=== PATIENT | female | born 1990 | race Caucasian/White ===

== ENCOUNTER 2017-07-27 15:51 | Emergency (ER) | payer OTHER ==
[~2017-07-27] VITALS: Ht 160 cm; Wt 105.5 kg
[2017-07-27 16:07] VITALS: Ht 160 cm; Wt 105.5 kg
[2017-07-27] MEDS ORDERED: AZIT250T94 PO (19:34)
--- NOTE | 2017-07-27 19:38 | ERD ---
ER Documentation Chief Complaint Date/Time DATE: 07/27/17 TIME: 19:35 Chief Complaint Patient states cough with and pain and flu-like sypmtoms HPI 26-year-old female who is approximately 10 weeks complaining of dry cough that she has had for over a month she states. She thinks he had a fever at first the fever has subsided. No nausea or vomiting. She denies any OB complaints. No vaginal bleeding. No dysuria hematuria or increased urinary frequency. No nausea vomiting. No no pelvic pain. No abdominal pain. ROS All systems reviewed and are negative except as per history of present illness. Medications Home Meds Active Scripts Azithromycin* (Zithromax*) 250 Mg Tablet, 250 MG PO .ZPACK DIRECTED, #6 TAB TAKE 500 MG (2 TABS) THE FIRST DAY THEN 250 MG (1 TAB) DAYS 2-5 Prov:THOM DURAN PA-C 07/27/17 FmHx Family History: No diabetes Physical Exam Vitals Vital Signs Date Time Temp Pulse Resp B/P Pulse Ox O2 Delivery O2 Flow Rate FiO2 07/27/17 16:07 98.4 109 20 134/89 99 Physical Exam INITIAL VITAL SIGNS: Reviewed by me GENERAL: Awake, alert and oriented x 4, well appearing, nontoxic, speaking in full sentences. No acute distress HEAD: Atraumatic NOSE: Normal nose. THROAT: No tonilar erythema or edema. No exudates. Uvula midline. No kissing tonsils. NECK: Supple. No masses. Full range of motion. No meningismus. No midline tenderness. RESPIRATORY: Clear to auscultation bilaterally. Symmetric chest wall rise. No wheezing or rales. No accessory muscle use. CV: Regular rate and rhythm. No murmurs, rubs, or gallops. ABDOMEN: Soft, non-distended. Nontender. Negative [place]. Negative McBurneys point tenderness. No CVA tenderness bilaterally. No guarding. No rebound. Procedures/MDM 26-year-old female presents with cough and congestion for over a month she states. Her lungs are clear. I doubt pneumonia. I will treat her with azithromycin. She has no OB complaints. Patient counseled regarding my diagnostic impression and care plan. Prior to discharge all questions answered. Pt agrees with treatment plan and understands strict return precautions. Pt is instructed to follow up with primary care provider within 24-48 hours. Precautionary instructions provided including instructions to return to the ER if not improving or for any worsening or changing symptoms or concerns. Departure Diagnosis: Primary Impression: Additional Impression: Bronchitis Condition: Stable Patient Instructions: Acute Bronchitis Additional Instructions: Call your primary care doctor TOMORROW for an appointment during the next 1-2 days.See the doctor sooner or return here if your condition worsens before your appointment time. THOM DURAN PA-C Jul 27, 2017 19:38
== END 2017-07-27 19:56 | disposition home or self-care (01) ==
LOC: FTE 15:51
DX: O99.511 Diseases of the respiratory system complicating pregnancy, first trimester (principal); J20.9 Acute bronchitis, unspecified; Z3A.10 10 weeks gestation of pregnancy
CPT/HCPCS: 99283

== ENCOUNTER 2017-08-03 09:15 | Emergency (ER) | payer OTHER ==
[~2017-08-03] VITALS: Ht 167.6 cm; Wt 105.0 kg
[~2017-08-03 09:15] MED LIST: AZIT250T94 PO
[2017-08-03 09:20] VITALS: Ht 167.6 cm; Wt 105.0 kg
[2017-08-03] MEDS ORDERED: DIPHTH/TET/ACEL PERTUSS (ADULT) 0.5 ML VIAL IM* ONE (10:00)
[2017-08-03 10:23] LABS: ADD UMIC YES; UR ASCORBIC ACID 40 mg/dL (NEGATIVE); UR BACTERIA FEW /HPF (NONE SEEN); UR BILIRUBIN (Dip) NEGATIVE (NEGATIVE); UR BLOOD (Dip) NEGATIVE (NEGATIVE); UR CLARITY CLOUDY (CLEAR); UR COLOR YELLOW (YELLOW); UR GLUCOSE (Dip) NEGATIVE (NEGATIVE); UR KETONES (Dip) NEGATIVE (NEGATIVE); UR LEUKOCYTE ESTERASE (Dip) TRACE Leu/ul (NEGATIVE); UR NITRITE (Dip) NEGATIVE (NEGATIVE); UR RBC 2 /HPF (0-5); UR SPECIFIC GRAVITY (Dip) 1.019 (1.003-1.030); UR SQUAMOUS EPITHELIAL CELL MANY /HPF (FEW); UR TOTAL PROTEIN (Dip) 3+ mg/dl (NEGATIVE); UR UROBILINOGEN (Dip) NEGATIVE (NEGATIVE)
--- NOTE | 2017-08-03 10:35 | RADRPT ---
PROCEDURE: XR Chest. CLINICAL INDICATION: Cough for 1 month TECHNIQUE: Single frontal view of the chest was obtained COMPARISON: None FINDINGS: No pleural effusion or pneumothorax. No consolidation. Unremarkable cardiomediastinal silhouette. No acute osseous abnormality. IMPRESSION: No acute cardiopulmonary disease. RPTAT: EE Eduardo Dobbs Physician Date Time Electronically viewed and signed by Eduardo Dobbs Physician on 08/03/2017 10:35 /
[2017-08-03 10:46] LABS: BASOPHILS % 0.2 % (0.0-2.0); EOSINOPHILS # 0.1 10^3/ul (0.0-0.5); EOSINOPHILS % 1.2 % (0.0-7.0); HEMATOCRIT 37.4 % (37.0-47.0); HEMOGLOBIN 12.9 g/dl (12.0-16.0); LYMPHOCYTES # 1.7 10^3/ul (0.8-2.9); LYMPHOCYTES % 18.4 % (15.0-51.0); MEAN CORPUSCULAR HEMOGLOBIN 28.6 pg (29.0-33.0); MEAN CORPUSCULAR HGB CONC 34.5 g/dl (32.0-37.0); MEAN CORPUSCULAR VOLUME 82.9 fl (82.0-101.0); MEAN PLATELET VOLUME 11.4 fl (7.4-10.4); MONOCYTE # 0.4 10^3/ul (0.3-0.9); MONOCYTES % 4.4 % (0.0-11.0); PLATELET COUNT 144 10^3/UL (140-415); RED BLOOD COUNT 4.51 10^6/ul (4.20-5.40); RED CELL DISTRIBUTION WIDTH 13.1 % (11.5-14.5); WHITE BLOOD COUNT 9.5 10^3/ul (4.8-10.8)
--- NOTE | 2017-08-03 11:21 | RADRPT ---
PROCEDURE: US OB. CLINICAL INDICATION: Vaginal bleeding TECHNIQUE: Multiple sonographic images of the pelvis and gravid uterus were obtained. The images were reviewed on a PACS workstation. COMPARISON: No prior studies are available for comparison. FINDINGS: The cervix is closed with a length of 3.7 cm. There is a single viable intrauterine gestation. Cardiac activity is present with 144 beats per min elsi. There is a breech presentation. The placenta is posterior. There is no evidence for an abruption or placenta previa. MVP = 4.0 cm. Measurements were made in order to determine age. The results are as follows: BPD =3.8 cm HC =14.4 cm AC =12.3 cm FL =2.5 cm Estimated gestational age of approximately 17 weeks and 5 days based on ultrasound measurements. Clinical age: 17 weeks and 2 days. The estimated date of delivery is 01/06/18, based on ultrasound measurements. The EFW = 205 g, 70.6%, based on LMP age. The ovaries were not visualized. RPTAT: AA IMPRESSION: Single viable intrauterine gestation of approximately 17 weeks and 5 days based on ultrasound measu rements. .Tyson Shafer MD, Date Time Electronically viewed and signed by .Tyson Shafer MD, on 08/03/2017 11:21 .S/
[2017-08-03] MEDS ORDERED: ACET500C5 PO (11:31)
[2017-08-03] MEDS ORDERED: GUAI-637 PO (11:31)
[2017-08-03] MEDS ORDERED: MENT1.1L MM (11:31)
[2017-08-03] MEDS ORDERED: SODI126M NASAL (11:39)
[2017-08-03 12:15] VITALS: BP 162/98; PULSE 78; RESP 18; TEMP 98.3
--- NOTE | 2017-08-03 15:14 | ERD ---
ER Documentation Chief Complaint Date/Time DATE: 08/03/17 TIME: 15:09 Chief Complaint Complains of cough x a month (CAROLYN TRAN NP) HPI 26-year-old female who is approximately 13 weeks is complaining of cough 1 month. Cough is constant, nonproductive. She also has several episodes of posttussive vomiting. Patient stated that she was found incidentally 1-2 weeks ago, she has not seen a OB for care. She had episode of vaginal spotting 3-4 days ago, and has since stopped. Her LMP was 02/24/2017, patient is . She does not remember when her tetanus update was. Denies fever or chills. Denies shortness of breath. Denies abdominal pain or diarrhea. Denies pelvic pain. Denies dysuria. (CAROLYN TRAN NP) ROS All systems reviewed and are negative except as per history of present illness. (CAROLYN TRAN NP) Medications Home Meds Active Scripts Sodium Chloride (Saline Nasal Mist) 126 Ml Mist, 2 SPRAY NASAL Q2H Y for NASAL CONGESTION, #1 BOTTLE Prov:CAROLYN TRAN NP 08/03/17 Menthol (RICOLA) 1.1 Mg Lozenge, 1.1 MG MM Q2H Y for COUGH, #30 LOZENGE Prov:CAROLYN TRAN NP 08/03/17 Guaifenesin* (Robitussin*) 100 Mg/5 Ml Syrup, 200 MG PO Q4H Y for COUGH, #120 ML Prov:CAROLYN TRAN NP 08/03/17 Acetaminophen* (Tylophen*) 500 Mg Capsule, 1 CAP PO Q6H Y for PAIN AND OR ELEVATED TEMP, #20 CAP Prov:CAROLYN TRAN NP 08/03/17 Azithromycin* (Zithromax*) 250 Mg Tablet, 250 MG PO .ZPACK DIRECTED, #6 TAB TAKE 500 MG (2 TABS) THE FIRST DAY THEN 250 MG (1 TAB) DAYS 2-5 Prov:THOM DURAN PA-C 07/27/17 Allergies Allergies: Coded Allergies: No Known Allergy (Unverified , 08/03/17) PMhx/Soc Medical and Surgical Hx: pt denies Medical Hx, pt denies Surgical Hx Hx Alcohol Use: No Hx Substance Use: No Hx Tobacco Use: No (CAROLYN TRAN NP) Physical Exam Vitals Vital Signs Date Time Temp Pulse Resp B/P Pulse Ox O2 Delivery O2 Flow Rate FiO2 08/03/17 12:15 98.3 78 18 162/98 98 Room Air 08/03/17 09:20 98.3 86 20 180/102 98 (RACHEL BOUDREAUX MD) Physical Exam General: Well-developed, well-nourished, conscious and coherent, in no distress Skin: Warm and dry without rash, good texture and turgor Head: Normocephalic without evidence of trauma Eyes: Sclera and conjunctivae normal; pupils equal, round, and reactive to light; extraocular movements are intact Ears: Canals are patent. Tympanic membranes are clear Nose/Face: With clear rhinorrhea Mouth/throat: Mucous membranes are moist. Posterior pharynx clear without erythema or exudates Neck: Supple without meningismus or adenopathy. Carotids are equal. Trachea midline. No bruits or JVD Chest: Normal AP diameter. Good expansion without retractions. Nontender. Lungs are clear to auscultate bilaterally with good tidal volume Heart: Regular rate and rhythm. No murmur, rub, or gallops heard Abdomen: Soft and nontender without masses, guarding, or rebound. Bowel sounds are active. No hepatosplenomegaly Back: Without spinal or CVA tenderness Pelvis: Nontender to palpation and stable to compression Extremities: Full range of motion. Good strength bilaterally. No clubbing, cyanosis, or edema. Peripheral pulses are intact. Sensation intact Neuro: Alert and oriented 4, GCS 15. Cranial nerves grossly intact. Motor and sensory exams nonfocal. Moves all extremities. Speech clear. Gait normal (CAROLYN TRAN NP) Result Diagram: 08/03/17 1022 Results 24 hrs Laboratory Tests Test 08/03/17 10:00 08/03/17 10:22 Urine Color YELLOW Urine Clarity CLOUDY Urine pH 5.0 Urine Specific Frostproof 1.019 Urine Ketones NEGATIVEmg/dL Urine Nitrite NEGATIVEmg/dL Urine Bilirubin NEGATIVEmg/dL Urine Urobilinogen NEGATIVEmg/dL Urine Leukocyte Esterase TRACELeu/ul Urine Microscopic RBC 2/HPF Urine Microscopic WBC 11/HPF Urine Squamous Epithelial Cells MANY/HPF Urine Bacteria FEW/HPF Urine Hemoglobin NEGATIVEmg/dL Urine Glucose NEGATIVEmg/dL Urine Total Protein 3+mg/dl White Blood Count 9.510^3/ul Red Blood Count 4.5110^6/ul Hemoglobin 12.9g/dl Hematocrit 37.4% Mean Corpuscular Volume 82.9fl Mean Corpuscular Hemoglobin 28.6pg Mean Corpuscular Hemoglobin Concent 34.5g/dl Red Cell Distribution Width 13.1% Platelet Count 48176^3/UL Mean Platelet Volume 11.4fl Neutrophils % 75.0% Lymphocytes % 18.4% Monocytes % 4.4% Eosinophils % 1.2% Basophils % 0.2% Nucleated Red Blood Cells % 0.0/100WBC Neutrophils # (Manual) 7.110^3/ul Lymphocytes # 1.710^3/ul Monocytes # 0.410^3/ul Eosinophils # 0.110^3/ul Basophils # 0.010^3/ul Nucleated Red Blood Cells # 0.010^3/ul Beta HCG, Quantitative 96302.0mIU/ml Current Medications Medications (Trade) Dose Ordered Sig/Michelle Route PRN Reason Start Time Stop Time Status Last Admin Dose Admin Diphtheria/ Tetanus/Acell Pertussis (Adacel) 0.5 ml ONCE ONCE IM* 08/03/17 10:00 08/03/17 10:01 DC 08/03/17 10:16 (RACHEL BOUDREAUX MD) Results 24 hrs PROCEDURE: XR Chest. CLINICAL INDICATION: Cough for 1 month TECHNIQUE: Single frontal view of the chest was obtained COMPARISON: None FINDINGS: No pleural effusion or pneumothorax. No consolidation. Unremarkable cardiomediastinal silhouette. No acute osseous abnormality. IMPRESSION: No acute cardiopulmonary disease. RPTAT: EE Physician Nilda Date Time Electronically viewed and signed by Physician Nilda on 08/03/2017 10 :35 GC/ CC: CAROLYN TRAN NP PROCEDURE: US OB. CLINICAL INDICATION: Vaginal bleeding TECHNIQUE: Multiple sonographic images of the pelvis and gravid uterus were obtained. The images were reviewed on a PACS workstation. COMPARISON: No prior studies are available for comparison. FINDINGS: The cervix is closed with a length of 3.7 cm. There is a single viable intrauterine gestation. Cardiac activity is present with 144 beats per minute. There is a breech presentation. The placenta is posterior. There is no evidence for an abruption or placenta previa. MVP = 4.0 cm. Measurements were made in order to determine age. The results are as follows: BPD = 3.8 cm HC = 14.4 cm AC = 12.3 cm FL = 2.5 cm Estimated gestational age of approximately 17 weeks and 5 days based on ultrasound measurements. Clinical age: 17 weeks and 2 days. The estimated date of delivery is 01/06/18, based on ultrasound measurements. The EFW = 205 g, 70.6%, based on LMP age. The ovaries were not visualized. RPTAT: AA IMPRESSION: Single viable intrauterine gestation of approximately 17 weeks and 5 days based on ultrasound measurements. .Tyson Shafer MD, MD Date Time Electronically viewed and signed by .Tyson Shafer MD, MD on 08/03/2017 11: 21 .S/ CC: CAROLYN TRAN NP (CAROLYN TRAN NP) Procedures/MDM 26-year-old female who is approximately 13 weeks present ED with cough 1 month. Patient history is highly suspicious of pertussis. Pertussis swab was obtained and sent off for testing, results pending. Patient is given Tdap in the ED for pertussis vaccination. Chest x-ray is negative for acute cardiopulmonary etiology. Given patient is , weighing the risks and benefits of antibiotic treatment for presumptive pertussis, I opted to hold azithromycin at this time. If her pertussis testing is positive, we will treat her at that time. Patient also reports vaginal spotting 3-4 days ago. CBC: Unremarkable Beta hC.0 UA: Trace leukocyte, many squamous epithelial cells. This likely represent dirty catch rather than urinary tract infection. Blood type: A+. RhoGAM is not indicated for patient. OB ultrasound: Single viable intrauterine of approximately 17 weeks and 5 days, cardiac activity is present with 144 bpm. Low suspicion for threatened . Patient is informed of all the testing results, and advised to follow-up with OB for care. Patient appears well, stable for discharge and outpatient management. Medical decision making shared with patient and family. Education provided to patient and family. Patient and family expressed understanding of the plan. Medications on discharge: Saline nasal spray, Ricola cough lozenges, Robitussin. Follow-up: Primary care provider in 2-3 days or return to ED if worse. Disclaimer: Inadvertent spelling and grammatical errors are likely due to EHR/ dictation software use and do not reflect on the overall quality of patient care. Also, please note that the electronic time recorded on this note does not necessarily reflect the actual time of the patient encounter. (CAROLYN TRAN RODBUSTER) While the patient has a reassuring ultrasound, vaginal bleeding in the context of a indicates a threatened . The treatment regimen prescribed by the PA is correct, which includes close follow up with the patient 's senior underwriting assistant. (RACHEL BOUDREAUX MD) Departure Diagnosis: Primary Impression: Cough Additional Impressions: Vaginal bleeding in patient at less than 20 weeks ges... Threatened in early Condition: Stable Patient Instructions: Bleeding During Early , Cough, Chronic, Uncertain Cause, (Adult) Referrals: [facility] YOU HAVE RECEIVED A MEDICAL SCREENING EXAM AND THE RESULTS INDICATE THAT YOU DO NOT HAVE A CONDITION THAT REQUIRES URGENT TREATMENT IN THE EMERGENCY DEPARTMENT. FURTHER EVALUATION AND TREATMENT OF YOUR CONDITION CAN WAIT UNTIL YOU ARE SEEN IN YOUR DOCTORS OFFICE WITHIN THE NEXT 1-2 DAYS. IT IS YOUR RESPONSIBILITY TO MAKE AN APPOINTMENT FOR FOLOW-UP CARE. IF YOU HAVE A PRIMARY DOCTOR --you should call your primary doctor and schedule an appointment IF YOU DO NOT HAVE A PRIMARY DOCTOR YOU CAN CALL OUR PHYSICIAN REFERRAL HOTLINE AT IF YOU CAN NOT AFFORD TO SEE A PHYSICIAN YOU CAN CHOSE FROM THE FOLLOWING [facility] [address] [facility] [address] [facility] [facility] [address] [facility] [address] [facility] [facility] [address] [facility] [facility] [address] [employer] [place] [address] [facility] [address] [place] [address] OFFICE FAX , [facility] [address] [place] [address] [address] [facility] [address] [place] [address] [address], [facility] [address] [facility] [facility] [address] [address] [facility] [address] [place] [address] [facility] [address] [place] [address] [facility] [address] - MICHEL WARNER [address] [facility] [address] [address] [address] [facility]. [address], [facility] [address] [address] [address] [place], [place] [address] Additional Instructions: Call your primary care doctor TOMORROW for an appointment during the next 2-3 days.See the doctor sooner or return here if your condition worsens before your appointment time. CARLOYN TRAN NP Aug 03, 2017 15:14 RACHEL BOUDREAUX MD Aug 03, 2017 16:58
== END 2017-08-03 12:15 | disposition home or self-care (01) ==
LOC: FTE 09:15
DX: O99.89 Other specified diseases and conditions complicating pregnancy, childbirth and the puerperium (principal); O20.0 Threatened abortion; R05 Cough; Z3A.17 17 weeks gestation of pregnancy
CPT/HCPCS: 36415; 71010; 76805; 81001; 84702; 85025; 86900; 86901; 90471; 90715; Z7502

== ENCOUNTER 2018-04-22 11:52 | Emergency (ER) | END 2018-04-22 17:37 | disposition home or self-care (01) ==

== ENCOUNTER 2018-05-02 18:45 | Emergency (ER) | END 2018-05-03 00:06 | disposition home or self-care (01) ==

== ENCOUNTER 2018-06-29 20:22 | Emergency (ER) | END 2018-06-29 21:55 | disposition home or self-care (01) ==